=== PATIENT | male | born 1980 | race African-American/Black ===

== ENCOUNTER 2021-03-09 17:59 | Emergency (ER) | payer SELFPAY ==
--- NOTE | 2021-03-09 20:44 | EDPHYS ---
Physician Documentation [facility] Name: Jose Elias Bear Age: 40 yrs Sex: Male : 1980 Arrival Date: 03/09/2021 Time: 18:02 Bed DIS2 Private MD: ED Physician Cody Ruth HPI: 03/09 20:35 This 40 yrs old Black Male presents to ER via Ambulatory with complaints of Skin cp Sore(s). 20:35 The patient presents with an abscess of the left side of upper lip. Description: cp swollen. Onset: The symptoms/episode began/occurred gradually. Possible cause(s): unknown. Associated signs and symptoms: Pertinent positives: swelling, Pertinent negatives: discharge, drainage, fever. 20:36 Patient also c/o chronic multiple callus to left foot and requests referral to cp podiatrists. Historical: - Allergies: 20:27 No Known Allergies; kg - Home Meds: 20:27 None [Active]; kg - PMHx: 20:27 None; kg - PSHx: 20:27 None; kg - Immunization history:: Adult Immunizations not up to date, Client reports having NOT received the Covid vaccine. - Social history:: Smoking status: Patient reports the use of cigarette tobacco products, smokes one pack cigarettes per day. Patient uses street drugs, marijuana. ROS: 20:37 All other systems are negative. cp Exam: 20:38 Head/Face: Normocephalic, atraumatic. cp 20:38 Constitutional: The patient appears in no acute distress, alert, awake, non-toxic, well developed, well nourished. 20:38 ENT: Mouth: Lips: moist, small tender pustule noted left side of upper lip with mild swelling. 20:38 Musculoskeletal/extremity: Extremities: noted in the right foot: multiple non-tender hardened calluses noted to plantar surface and medial aspect left great toe. Vital Signs: 20:25 BP 143 / 88; Pulse 94; Resp 17 S; Temp 97.2(O); Pulse Ox 98% on R/A; Weight 74.84 kg; kg Height 6 ft. 4 in. (193.04 cm); Pain 5/10; 20:59 BP 139 / 88 LA Sitting (auto/reg); Pulse 100 MON; Resp 16 S; Temp 98.5; Pulse Ox 99% ; ds4 20:25 Body Mass Index 20.08 (74.84 kg, 193.04 cm) kg MDM: 20:40 Data reviewed: vital signs, nurses notes, and as a result, I will discharge patient. cp 20:44 Patient medically screened. cp Administered Medications: No medications were administered Disposition: 21:00 Chart complete. cp 21:07 Co-signature as Attending Physician, Cody Ruth MD. pkl Disposition Summary: 03/09/21 20:44 Discharge Ordered Location: Home cp Problem: new cp Symptoms: have improved cp Condition: Stable cp Diagnosis - Cutaneous abscess of face - left upper lip cp - Corns and callosities - left foot cp Followup: cp - With: Maciej Newman DPM - When: As needed - Reason: plantar calluses Followup: cp - With: Private Physician - When: 2 - 3 days - Reason: worsening lip abscess Discharge Instructions: - Discharge Summary Sheet cp - Skin Abscess cp - Corns and Calluses cp Forms: - Medication Reconciliation Form cp - Thank You Letter cp - Antibiotic Education cp - Prescription Opioid Use cp Prescriptions: - mupirocin 2 % Topical ointment - apply 1 application by TOPICAL route 3 times per day for 10 days; 1 tube; cp Refills: 0, Product Selection Permitted - Bactrim DS 800-160 mg Oral Tablet - take 1 tablet by ORAL route every 12 hours for 10 days; 20 tablet; Refills: 0, cp Product Selection Permitted Signatures: Cody Ruth MD MD pkl Emery Coreas PA PA cp Lou May RN RN kg Corrections: (The following items were deleted from the chart) 20:29 20:27 PMHx: None; kg kg
--- NOTE | 2021-03-09 20:44 | ER ---
Nurse's Notes [facility] Name: Jose Elias Bear Age: 40 yrs Sex: Male : 1980 Arrival Date: 03/09/2021 Time: 18:02 Bed DIS2 Private MD: Diagnosis: Cutaneous abscess of face-left upper lip;Corns and callosities-left foot Presentation: 03/09 20:25 Chief complaint: Patient states: Abscess to top lip. Coronavirus screen: Client denies kg travel out of the [place] in the last 14 days. At this time, unable to obtain information related to travel outside the [place] Ebola Screen: Patient negative for fever greater than or equal to 101.5 degrees Fahrenheit, and additional compatible Ebola Virus Disease symptoms Patient denies exposure to infectious person. Patient denies travel to an Ebola-affected area in the 21 days before illness onset. Initial Sepsis Screen: Does the patient meet any 2 criteria? No. Patient's initial sepsis screen is negative. Does the patient have a suspected source of infection? No. Patient's initial sepsis screen is negative. Risk Assessment: Do you want to hurt yourself or someone else? Patient reports no desire to harm self or others. Onset of symptoms was March 07, 2021. 20:25 Method Of Arrival: Ambulatory kg 20:25 Acuity: GABRIEL 4 kg Triage Assessment: 20:29 General: Appears in no apparent distress. General: Behavior is calm, cooperative, kg appropriate for age, quiet. Pain: Complains of pain in Top lip. Historical: - Allergies: 20:27 No Known Allergies; kg - Home Meds: 20:27 None [Active]; kg - PMHx: 20:27 None; kg - PSHx: 20:27 None; kg - Immunization history:: Adult Immunizations not up to date, Client reports having NOT received the Covid vaccine. - Social history:: Smoking status: Patient reports the use of cigarette tobacco products, smokes one pack cigarettes per day. Patient uses street drugs, marijuana. Screenin:29 Abuse screen: Denies threats or abuse. Denies injuries from another. Nutritional kg screening: No deficits noted. Tuberculosis screening: No symptoms or risk factors identified. Fall Risk None identified. Assessment: 21:04 Reassessment: pt not seen by this RN on discharge pt is A\T\O x 4, resp unlabored, bb verbalized understanding of and agrees to plan of care discharge instructions given. Vital Signs: 20:25 BP 143 / 88; Pulse 94; Resp 17 S; Temp 97.2(O); Pulse Ox 98% on R/A; Weight 74.84 kg; kg Height 6 ft. 4 in. (193.04 cm); Pain 5/10; 20:59 BP 139 / 88 LA Sitting (auto/reg); Pulse 100 MON; Resp 16 S; Temp 98.5; Pulse Ox 99% ; ds4 20:25 Body Mass Index 20.08 (74.84 kg, 193.04 cm) kg ED Course: 18:02 Patient arrived in ED. mr 20:27 Triage completed. kg 20:29 Patient has correct armband on for positive identification. kg 20:29 Arm band placed on. kg 20:29 No provider procedures requiring assistance completed. Patient did not have IV access kg during this emergency room visit. 20:35 Emery Coreas PA is PHCP. cp 20:35 Cody Ruth MD is Attending Physician. cp 20:41 Maciej Newman DPM is Referral Physician. cp Administered Medications: No medications were administered Outcome: 20:33 Discharged to home ambulatory. kg 20:33 Condition: improved 20:44 Discharge ordered by MD. cp 21:06 Instructed on discharge instructions, follow up and referral plans. medication usage, bb Demonstrated understanding of instructions, follow-up care, medications, Prescriptions given X 2. 21:06 Patient left the ED. bb Signatures: Maricruz Hayward Sujata Sinha RN RN bb Sean Corona ds4 Emery Coreas PA PA cp Lou May RN RN kg Corrections: (The following items were deleted from the chart) 20:29 20:27 PMHx: None; kg kg
[2021-03-09 21:18] VITALS: BP 139/88; TEMP 98.5; O2SAT 99
== END 2021-03-09 21:06 | disposition home or self-care (01) ==
LOC: ER 17:59
DX: L02.01 Cutaneous abscess of face (principal); L84 Corns and callosities; F17.210 Nicotine dependence, cigarettes, uncomplicated
CPT/HCPCS: 99282